=== PATIENT | male | born 1985 | race Caucasian/White ===

== ENCOUNTER → 2020-08-21 | Outpatient (CLI) | payer BC ==
[~2020-08-21] MED LIST: MOTRIN800 MG PO; ZITHROMAX Z PA250 MG PO
== END | disposition home or self-care (01) ==
LOC: MRI 08:56
PROVIDERS: ATTEND Orthopaedic Surgery
DX: M77.8 Other enthesopathies, not elsewhere classified (principal); M70.32 Other bursitis of elbow, left elbow; M25.422 Effusion, left elbow; Y93.89 Activity, other specified